=== PATIENT | female | born 1950 | race Caucasian/White ===

== ENCOUNTER 2017-04-25 10:26 | Emergency (ER) | payer OTHER ==
[~2017-04-25] VITALS: Ht 152.4 cm; Wt 54.6 kg
[2017-04-25 10:56] VITALS: BP 150/93
--- NOTE | 2017-04-25 12:10 | NUR ---
66/F BIB SELF c/o generalized pruritus x 1 wk; no obvious rash noted; denies eating or using and new products, hx OF hyperthyroid, RH. DENIES N/V/D; AAOX4 WITH EVEN AND STEADY GAIT; LUNGS CLEAR BL; HR EVEN AND REGULAR; PT DENIES ANY FEVER, CP, SOB, OR COUGH AT THIS TIME; PATIENT STATES PAIN OF 0/10 AT THIS TIME; VSS; PATIENT POSITIONED FOR COMFORT; HOB ELEVATED; BEDRAILS UP X2; BED DOWN. ER MD MADE AWARE OF PT STATUS.
--- NOTE | 2017-04-25 12:30 | NUR ---
ER MD DR MADSEN EVALUATING PT AT BEDSIDE
--- NOTE | 2017-04-25 12:40 | NUR ---
BP 177/117; RA., 177/87 LA DENIES ANY HEADACH OR DIZZINESS; PT STS "LAST WEEK MY BP NORMAL"NOTIFIED ER MD DR MADSEN. AWARE .
--- NOTE | 2017-04-25 12:47 | NUR ---
Patient discharged with BP 177/87; DENIES HEADACH OR MD DWAYNE AWARE. Written and verbal after care instructions given and explained. Patient alert, oriented and verbalized understanding of instructions. Ambulatory with steady gait. All questions addressed prior to discharge. ID band removed. Patient advised to follow up with PMD. Rx of BENADRYL & PREDNISONE given. Patient educated on indication of medication including possible reaction and side effects. Opportunity to ask questions provided and answered.
[2017-04-25 12:48] VITALS: BP 177/87
== END 2017-04-25 12:47 | disposition home or self-care (01) ==
LOC: MED 10:26
DX: R21 Rash and other nonspecific skin eruption (principal); E07.9 Disorder of thyroid, unspecified; Z88.6 Allergy status to analgesic agent
CPT/HCPCS: 99283

== ENCOUNTER 2019-02-26 10:11 | Emergency (ER) | payer OTHER ==
[~2019-02-26] VITALS: Ht 147.3 cm; Wt 48.1 kg
--- NOTE | 2019-02-26 10:16 | NUR ---
PATIENT AMBULATED TO BED 11
[2019-02-26 10:20] VITALS: BP 185/104
--- NOTE | 2019-02-26 10:23 | NUR ---
urine cup handed to pt for sample
--- NOTE | 2019-02-26 10:27 | NUR ---
c/o sudden onset of right flank pain non radiating x 3 days denies dysuria, denies n/v
--- NOTE | 2019-02-26 10:50 | NUR ---
encouraged to provide urine sample---lab at bedside
--- NOTE | 2019-02-26 10:50 | NUR ---
returned from radiology via
[2019-02-26 11:05] LABS: BASOPHILS % (AUTO) 0.7 % (0.0-2.0); EOSINOPHILS # (AUTO) 0.1 K/uL (0-0.4); EOSINOPHILS % (AUTO) 2.4 % (0.0-4.0); HEMATOCRIT 35.7 % (36-48); LYMPHOCYTES # (AUTO) 2.5 K/uL (2.5-16.5); LYMPHOCYTES % (AUTO) 49.5 % (20.5-51.1); MEAN CORPUSCULAR HEMOGLOBIN 33 pg (27-31); MEAN CORPUSCULAR HGB CONC 34 g/dL (33-37); MEAN CORPUSCULAR VOLUME 97.5 fL (80-94); MONOCYTES # (AUTO) 0.7 K/uL (0.8-1.0); MONOCYTES % (AUTO) 13.4 % (1.7-9.3); NEUTROPHILS # (AUTO) 1.7 K/uL (1.8-7.7); PLATELET COUNT (AUTO) 262 K/uL (140-450); RED BLOOD CELL COUNT(AUTO) 3.66 MIL/uL (4.20-5.40); RED CELL DISTRIBUTION WIDTH 13.6 % (11.6-13.7)
--- NOTE | 2019-02-26 11:13 | NUR ---
ultrasound at bedside
[2019-02-26 11:31] LABS: APPEARANCE,URINE CLEAR (CLEAR); BILIRUBIN,URINE NEGATIVE (NEGATIVE); BLOOD, URINE 1+ (NEGATIVE); COLOR,URINE YELLOW (YELLOW); LEUKOCYTE ESTERASE ,URINE NEGATIVE (NEGATIVE); NITRITE, URINE NEGATIVE (NEGATIVE); PH,URINE 6.5 (5.0-9.0); UGLUCOSE NEGATIVE (NEGATIVE)
[2019-02-26 11:38] LABS: ALBUMIN 3.7 g/dL (3.4-5.0); CARBON DIOXIDE 25.8 mmol/L (21-32); CREATININE 0.6 mg/dL (0.6-1.3); POTASSIUM 3.8 mmol/L (3.5-5.1); TOTAL BILIRUBIN 0.5 mg/dL (0.0-1.0)
[2019-02-26 12:03] LABS: RBC,URINE 0-5 /HPF (0-5); WBC,URINE NONE SEEN /HPF (0-5)
[2019-02-26 12:53] VITALS: BP 143/91
--- NOTE | 2019-02-26 12:53 | NUR ---
Patient discharged with v/s stable. Written and verbal after care instructions given and explained. Patient alert, oriented and verbalized understanding of instructions. Ambulatory with steady gait. All questions addressed prior to discharge. ID band removed. Patient advised to follow up with PMD. Rx of norco/ibuprofen given. Patient educated on indication of medication including possible reaction and side effects. Opportunity to ask questions provided and answered.
== END 2019-02-26 12:53 | disposition home or self-care (01) ==
LOC: MED 10:11
DX: M54.9 Dorsalgia, unspecified (principal); I10 Essential (primary) hypertension; E07.9 Disorder of thyroid, unspecified; E78.5 Hyperlipidemia, unspecified; M06.9 Rheumatoid arthritis, unspecified; Z90.49 Acquired absence of other specified parts of digestive tract; Z98.51 Tubal ligation status
CPT/HCPCS: 36415; 72100; 76770; 80053; 81001; 85025; 99284; Q0092

== ENCOUNTER 2019-06-06 23:27 | Emergency (ER) | payer OTHER ==
[~2019-06-06] VITALS: Ht 149.9 cm; Wt 47.6 kg
[2019-06-06 23:28] VITALS: BP 173/83
--- NOTE | 2019-06-06 23:45 | NUR ---
69 Y FEMALE, BIBA DUE HEART PALPITATIONS THAT STARTED ABOUT 1HOUR AGO. PT STATED "IT FELT LIKE MY HEART WAS POUNDING SO HARD" C/O PAIN 2/10 THAT DOES NOT RADIATE. PT ALSO STATED "WHEN I HAD THE PALPITATION IT FELT LIKE I RUNNING OUT OF BREATH". -N/V/D/BLURRY VISION, PT TOOK CHOLESTEROL MED TONIGHT, PT AAOX4, GCS 15, RR EVEN UNLABORED, NO SOB NOTED AT THIS TIME. ED MD DR. MADSEN MADE AWARE. WILL CONTINUE TO MONITOR CLOSELY, BEDLOCKED IN LOWEST POSITION, BILATERAL SIDERAILS UP. HX:HTN, HYPOTHYROIDISM
[2019-06-06 23:50] LABS: BASOPHILS % (AUTO) 0.4 % (0.0-2.0); EOSINOPHILS # (AUTO) 0.1 K/uL (0-0.4); EOSINOPHILS % (AUTO) 1.2 % (0.0-4.0); HEMATOCRIT 31.1 % (36-48); HEMOGLOBIN 10.6 g/dL (12.0-16.0); LYMPHOCYTES # (AUTO) 3.9 K/uL (2.5-16.5); MEAN CORPUSCULAR HEMOGLOBIN 33 pg (27-31); MEAN CORPUSCULAR HGB CONC 34 g/dL (33-37); MEAN CORPUSCULAR VOLUME 97.7 fL (80-94); MONOCYTES # (AUTO) 1.1 K/uL (0.8-1.0); MONOCYTES % (AUTO) 15.4 % (1.7-9.3); NEUTROPHILS % (AUTO) 28.3 % (42.2-75.2); PLATELET COUNT (AUTO) 244 K/uL (140-450); RED BLOOD CELL COUNT(AUTO) 3.18 MIL/uL (4.20-5.40)
[2019-06-07 00:05] LABS: LYMPHOCYTES % (AUTO) 54.7 % (20.5-51.1)
[2019-06-07 00:20] LABS: FREE T4 (FREE THYROXINE) 1.03 ng/dL (0.76-1.46); THYROID STIMULATING HORMONE 2.7 uIU/mL (0.34-3.74)
[2019-06-07 00:25] LABS: ALBUMIN 3.2 g/dL (3.4-5.0); ANION GAP 9.1 (8-16); CARBON DIOXIDE 29.5 mmol/L (21-32); CREATININE 0.6 mg/dL (0.6-1.3); POTASSIUM 3.6 mmol/L (3.5-5.1); TOTAL BILIRUBIN 0.5 mg/dL (0.0-1.0)
--- NOTE | 2019-06-07 01:08 | NUR ---
PT IN BED RESTING, VSS AT THIS TIME.
--- NOTE | 2019-06-07 01:30 | NUR ---
RECEIVED REPORT FROM KEN GA. TRANSFER OF CARE AT THIS TIME.
--- NOTE | 2019-06-07 02:22 | NUR ---
PT RESTING COMFORTABLY IN BED WITH VSS. DENIES PAIN, DISCOMFORT AT THIS TIME. SKIN PINK, WARM, DRY. BREATHING EVEN, UNLABORED.
[2019-06-07 02:40] VITALS: BP 139/73
--- NOTE | 2019-06-07 02:40 | NUR ---
Patient discharged with v/s stable. Written and verbal after care instructions given and explained. Patient verbalized understanding. Ambulatory with steady gait. All questions addressed prior to discharge. Advised to follow up with PMD.
== END 2019-06-07 02:40 | disposition home or self-care (01) ==
LOC: MED 23:27
DX: R00.2 Palpitations (principal); Z88.6 Allergy status to analgesic agent
CPT/HCPCS: 36415; 71045; 80053; 81002; 84439; 84443; 84484; 85025; 93005; 99284

== ENCOUNTER 2020-08-09 14:19 | Emergency (ER) | payer OTHER ==
[~2020-08-09] VITALS: Ht 149.9 cm; Wt 54.0 kg
[2020-08-09 14:23] VITALS: BP 146/74
--- NOTE | 2020-08-09 14:31 | NUR ---
AMBULATED TO BED 7
--- NOTE | 2020-08-09 14:43 | NUR ---
70 Y/O FEMALE ARRIVED TO ED C/C KEVON 05/25 NON RADIATING EPIGASTRIC PAIN X 4DAYS WITH NAUSEA. PT STATES NO VOMITING, NO DIARRHEA. PT STATES SHE HAS TAKEN PEPTO BISMOL, TUMS, SPEARMINT TEA, BUT NO RELIEF. BOWEL SOUNDS ACTIVE IN ALL FOR QUADRANTS, PASSING FLATUS, SKIN DRY AND INTACT, MOUIST MUCCOUS MEMBRANES. AA0X4 ALERGIES: CODEINE, NAPROXEN
[2020-08-09] MEDS ORDERED: ALUMINUM HYD/MAG/SIMETHICONE 30 ML UDC PO STA (15:18)
[2020-08-09] MEDS ORDERED: DICYCLOMINE 10 MG CAP PO STA (15:18)
[2020-08-09] MEDS ORDERED: FAMOTIDINE 20 MG TAB PO STA (15:18)
[2020-08-09 15:47] LABS: BASOPHILS % (AUTO) 0.6 % (0.0-2.0); EOSINOPHILS # (AUTO) 0.1 K/uL (0-0.4); EOSINOPHILS % (AUTO) 1.2 % (0.0-4.0); HEMATOCRIT 30.2 % (36-48); HEMOGLOBIN 10.3 g/dL (12.0-16.0); LYMPHOCYTES # (AUTO) 2.6 K/uL (2.5-16.5); LYMPHOCYTES % (AUTO) 53.5 % (20.5-51.1); MEAN CORPUSCULAR HEMOGLOBIN 34 pg (27-31); MEAN CORPUSCULAR HGB CONC 34 g/dL (33-37); MEAN CORPUSCULAR VOLUME 98.4 fL (80-94); MONOCYTES # (AUTO) 0.8 K/uL (0.8-1.0); MONOCYTES % (AUTO) 15.8 % (1.7-9.3); NEUTROPHILS # (AUTO) 1.4 K/uL (1.8-7.7); NEUTROPHILS % (AUTO) 28.9 % (42.2-75.2); PLATELET COUNT (AUTO) 230 K/uL (140-450); RED BLOOD CELL COUNT(AUTO) 3.07 MIL/uL (4.20-5.40); RED CELL DISTRIBUTION WIDTH 13.8 % (11.6-13.7); WHITE BLOOD COUNT (AUTO) 4.8 K/uL (4.8-10.8)
[2020-08-09 15:48] LABS: APPEARANCE,URINE CLEAR (CLEAR); BILIRUBIN,URINE NEGATIVE (NEGATIVE); BLOOD, URINE 1+ (NEGATIVE); COLOR,URINE YELLOW (YELLOW); LEUKOCYTE ESTERASE ,URINE NEGATIVE (NEGATIVE); NITRITE, URINE NEGATIVE (NEGATIVE); UGLUCOSE NEGATIVE (NEGATIVE)
[2020-08-09 16:06] LABS: WBC,URINE 0-5 /HPF (0-5)
[2020-08-09 16:08] LABS: ALBUMIN 3.2 g/dL (3.4-5.0); AMYLASE 79 U/L (25-115); ANION GAP 14.7 (8-16); ASPARTATE AMINOTRANSFERASE 37 U/L (15-37); CARBON DIOXIDE 24.7 mmol/L (21-32); CHLORIDE 104 mmol/L (98-107); CREATININE 0.6 mg/dL (0.6-1.3); GLUCOSE 96 mg/dL (74-106); LIPASE 130 U/L (73-393); POTASSIUM 4.4 mmol/L (3.5-5.1); SODIUM SERUM 139 mmol/L (136-145); TOTAL BILIRUBIN 0.5 mg/dL (0.0-1.0); UREA NITROGEN, BLOOD 12 mg/dL (7-18)
[2020-08-09 16:44] VITALS: BP 146/74
--- NOTE | 2020-08-09 16:44 | NUR ---
Patient discharged with v/s stable. Written and verbal after care instructions given and explained. Patient alert, oriented and verbalized understanding of instructions. Ambulatory with steady gait. All questions addressed prior to discharge. ID band removed. Patient advised to follow up with PMD. Rx of famotidine and maalox given. Patient educated on indication of medication including possible reaction and side effects. Opportunity to ask questions provided and answered.
[2020-08-10] MEDS ORDERED: FAMO-90 PO (21:05)
[2020-08-10] MEDS ORDERED: LOSA50TA1 PO (21:05)
[2020-08-10] MEDS ORDERED: LEVO0.0712 PO (21:05)
[2020-08-10] MEDS ORDERED: METH2.5T6 PO (21:05)
[2020-08-10] MEDS ORDERED: MAG-27 PO (21:05)
[2020-08-10] MEDS ORDERED: HYDR50CA9 PO (21:05)
[2020-08-10] MEDS ORDERED: FERR90TA PO (21:05)
[2020-08-10] MEDS ORDERED: PRAV20TA6 PO (21:05)
[2020-08-10] MEDS ORDERED: FOLI1TAB90 PO (21:05)
== END 2020-08-09 16:44 | disposition home or self-care (01) ==
LOC: MED 14:19
DX: A08.4 Viral intestinal infection, unspecified (principal); R11.2 Nausea with vomiting, unspecified; I10 Essential (primary) hypertension; K21.9 Gastro-esophageal reflux disease without esophagitis; E07.9 Disorder of thyroid, unspecified; Z88.5 Allergy status to narcotic agent; Z88.8 Allergy status to other drugs, medicaments and biological substances
CPT/HCPCS: 36415; 80053; 81001; 82150; 83690; 85025; 87086; 99284

== ENCOUNTER 2020-08-10 18:18 | Inpatient (IN) | payer OTHER ==
[~2020-08-10] VITALS: Ht 149.9 cm; Wt 44.9 kg
[2020-08-10 18:31] VITALS: BP 113/65
[2020-08-10] MEDS ORDERED: NACL 0.9% 1,000 ML IV ONE (18:55)
[2020-08-10] MEDS ORDERED: ONDANSETRON 4 MG/2 ML VIAL IVP ONE (18:55)
[2020-08-10 19:16] LABS: BASOPHILS % (AUTO) 0.6 % (0.0-2.0); HEMATOCRIT 31.6 % (36-48); LYMPHOCYTES # (AUTO) 2.4 K/uL (2.5-16.5); LYMPHOCYTES % (AUTO) 46.9 % (20.5-51.1); MEAN CORPUSCULAR HEMOGLOBIN 34 pg (27-31); MEAN CORPUSCULAR HGB CONC 35 g/dL (33-37); MONOCYTES # (AUTO) 0.7 K/uL (0.8-1.0); MONOCYTES % (AUTO) 13.2 % (1.7-9.3); NEUTROPHILS % (AUTO) 38.3 % (42.2-75.2); PLATELET COUNT (AUTO) 250 K/uL (140-450); RED BLOOD CELL COUNT(AUTO) 3.23 MIL/uL (4.20-5.40); RED CELL DISTRIBUTION WIDTH 13.5 % (11.6-13.7); WHITE BLOOD COUNT (AUTO) 5.1 K/uL (4.8-10.8)
[2020-08-10 19:28] LABS: ALBUMIN 3.5 g/dL (3.4-5.0); ANION GAP 11.5 (8-16); ASPARTATE AMINOTRANSFERASE 37 U/L (15-37); CARBON DIOXIDE 27.3 mmol/L (21-32); CHLORIDE 104 mmol/L (98-107); CREATININE 0.7 mg/dL (0.6-1.3); GLUCOSE 89 mg/dL (74-106); LIPASE 143 U/L (73-393); POTASSIUM 3.8 mmol/L (3.5-5.1); SODIUM SERUM 139 mmol/L (136-145); TOTAL BILIRUBIN 0.6 mg/dL (0.0-1.0); UREA NITROGEN, BLOOD 10 mg/dL (7-18)
[2020-08-10] MEDS ORDERED: fentaNYL citrate 0.05 MG/ML VIAL IVP ONE (19:30)
[2020-08-10] MEDS ORDERED: metroNIDAZOLE 500 MG/NS PREMIX 100 ML IV ONE (20:30)
[2020-08-10] MEDS ORDERED: cefTRIAXone 1,000 MG VIAL ONE (20:42)
[2020-08-10] MEDS ORDERED: MAG-27 PO (21:05)
[2020-08-10] MEDS ORDERED: HYDR50CA9 PO (21:05)
[2020-08-10] MEDS ORDERED: LOSA50TA1 PO (21:05)
[2020-08-10] MEDS ORDERED: FOLI1TAB90 PO (21:05)
[2020-08-10] MEDS ORDERED: DEXT 5% /NACL 0.9% 1,000 ML IV SCH (21:05)
[2020-08-10] MEDS ORDERED: LEVOFLOXACIN 500 MG/D5W PREMIX 100 ML IV SCH (21:05)
[2020-08-10] MEDS ORDERED: LEVO0.0712 PO (21:05)
[2020-08-10] MEDS ORDERED: MAGNESIUM OXIDE 400 MG TAB PO PRN (21:05)
[2020-08-10] MEDS ORDERED: METH2.5T6 PO (21:05)
[2020-08-10] MEDS ORDERED: MORPHINE SULFATE 4 MG/ML SYR IVP PRN (21:05)
[2020-08-10] MEDS ORDERED: ACETAMINOPHEN 325 MG TAB PO PRN (21:05)
[2020-08-10] MEDS ORDERED: HYDROcodone/APAP 5/325 MG 1 TAB TAB PO PRN (21:05)
[2020-08-10] MEDS ORDERED: ONDANSETRON 4 MG/2 ML VIAL IVP PRN (21:05)
[2020-08-10] MEDS ORDERED: POTASSIUM CHLORIDE 10 MEQ TABER PO PRN (21:05)
[2020-08-10] MEDS ORDERED: HYDROmorphone 1 MG/ML AMP IVP PRN (21:05)
[2020-08-10] MEDS ORDERED: FERR90TA PO (21:05)
[2020-08-10] MEDS ORDERED: MAG SULF 2000 MG/WATER PREMIX 50 ML IV PRN (21:05)
[2020-08-10] MEDS ORDERED: FAMO-90 PO (21:05)
[2020-08-10] MEDS ORDERED: KCL 20 MEQ/WATER INJ PREMIX 200 ML IV PRN (21:05)
[2020-08-10] MEDS ORDERED: PRAV20TA6 PO (21:05)
[2020-08-11] MEDS: POTASSIUM CHL 40 MEQ/ D5-1/2NS 1,000 ML IV SCH ×3 (00:26→16:40)
[2020-08-11] MEDS: metroNIDAZOLE 500 MG/NS PREMIX 100 ML IV SCH ×3 (04:34→20:36)
[2020-08-11 06:06] LABS: BASOPHILS % (AUTO) 0.9 % (0.0-2.0); EOSINOPHILS # (AUTO) 0.1 K/uL (0-0.4); EOSINOPHILS % (AUTO) 1.5 % (0.0-4.0); HEMATOCRIT 30.2 % (36-48); HEMOGLOBIN 10.3 g/dL (12.0-16.0); LYMPHOCYTES # (AUTO) 2.6 K/uL (2.5-16.5); LYMPHOCYTES % (AUTO) 54.3 % (20.5-51.1); MEAN CORPUSCULAR HEMOGLOBIN 34 pg (27-31); MEAN CORPUSCULAR HGB CONC 34 g/dL (33-37); MEAN CORPUSCULAR VOLUME 98.2 fL (80-94); MONOCYTES # (AUTO) 0.7 K/uL (0.8-1.0); MONOCYTES % (AUTO) 14.1 % (1.7-9.3); NEUTROPHILS # (AUTO) 1.4 K/uL (1.8-7.7); NEUTROPHILS % (AUTO) 29.2 % (42.2-75.2); PLATELET COUNT (AUTO) 235 K/uL (140-450); RED BLOOD CELL COUNT(AUTO) 3.07 MIL/uL (4.20-5.40); RED CELL DISTRIBUTION WIDTH 13.7 % (11.6-13.7); WHITE BLOOD COUNT (AUTO) 4.8 K/uL (4.8-10.8)
[2020-08-11 06:30] LABS: MAGNESIUM 2.5 mg/dL (1.8-2.4); PHOSPHORUS 3.1 mg/dL (2.5-4.9)
[2020-08-11 08:00] VITALS: BP 122/72
[2020-08-11] MEDS ORDERED: HYDROCORTISONE 1% OINT 30 GM TUBE TP PRN (10:55)
[2020-08-11 16:00] VITALS: BP 139/73
[2020-08-11] MEDS ORDERED: hydrOXYzine PAMOATE 25 MG CAP PO PRN (19:50)
[2020-08-11] MEDS ORDERED: LEVOFLOXACIN 250 MG/D5 PREMIX 50 ML IV SCH (21:00)
[2020-08-12] VITALS: BP 118/68
[2020-08-12] MEDS: metroNIDAZOLE 500 MG/NS PREMIX 100 ML IV SCH ×2 (05:17→12:27)
[2020-08-12 06:15] LABS: EOSINOPHILS # (AUTO) 0.1 K/uL (0-0.4); EOSINOPHILS % (AUTO) 2.2 % (0.0-4.0); HEMATOCRIT 28.6 % (36-48); HEMOGLOBIN 9.9 g/dL (12.0-16.0); LYMPHOCYTES # (AUTO) 2.2 K/uL (2.5-16.5); MEAN CORPUSCULAR HEMOGLOBIN 34 pg (27-31); MEAN CORPUSCULAR HGB CONC 35 g/dL (33-37); MEAN CORPUSCULAR VOLUME 98.2 fL (80-94); MONOCYTES # (AUTO) 0.7 K/uL (0.8-1.0); MONOCYTES % (AUTO) 15.7 % (1.7-9.3); NEUTROPHILS # (AUTO) 1.2 K/uL (1.8-7.7); NEUTROPHILS % (AUTO) 28.1 % (42.2-75.2); PLATELET COUNT (AUTO) 207 K/uL (140-450); RED BLOOD CELL COUNT(AUTO) 2.91 MIL/uL (4.20-5.40); RED CELL DISTRIBUTION WIDTH 13.5 % (11.6-13.7); WHITE BLOOD COUNT (AUTO) 4.2 K/uL (4.8-10.8)
[2020-08-12] MEDS ORDERED: LEVOTHYROXINE 0.075 MG TAB PO SCH (06:30)
[2020-08-12 06:35] LABS: MAGNESIUM 2.2 mg/dL (1.8-2.4); PHOSPHORUS 3.2 mg/dL (2.5-4.9)
[2020-08-12 08:00] VITALS: BP 120/68
[2020-08-12] MEDS ORDERED: FERROUS GLUCONATE PO SCH (09:00)
[2020-08-12] MEDS ORDERED: ATORVASTATIN 20 MG TAB PO SCH (09:00)
[2020-08-12] MEDS ORDERED: FAMOTIDINE 20 MG TAB PO SCH (09:00)
[2020-08-12] MEDS ORDERED: LOSARTAN 50 MG TAB PO SCH (09:00)
[2020-08-12] MEDS ORDERED: FOLIC ACID 1 MG TAB PO SCH (09:00)
[2020-08-12] MEDS ORDERED: METHOTREXATE 2.5 MG TAB PO SCH (09:00)
[2020-08-12] MEDS ORDERED: IRON 27 MG PO SCH (09:00)
[2020-08-12] MEDS: POTASSIUM CHL 40 MEQ/ D5-1/2NS 1,000 ML IV SCH (10:35)
[2020-08-12] MEDS ORDERED: CIPR500T4 PO (12:42)
[2020-08-12] MEDS ORDERED: METR250T2 PO (12:43)
== END 2020-08-12 14:30 | disposition home or self-care (01) | DRG 393 ==
LOC: MED 18:18 → MTU 21:01
PROVIDERS: ADMIT Hospitalist; ATTEND Hospitalist
DX: K63.1 Perforation of intestine (nontraumatic) (principal); K65.9 Peritonitis, unspecified; I10 Essential (primary) hypertension; E78.5 Hyperlipidemia, unspecified; M06.9 Rheumatoid arthritis, unspecified; D64.9 Anemia, unspecified; E03.9 Hypothyroidism, unspecified; F41.9 Anxiety disorder, unspecified; Z88.5 Allergy status to narcotic agent; Z90.49 Acquired absence of other specified parts of digestive tract; Z90.711 Acquired absence of uterus with remaining cervical stump; Z79.899 Other long term (current) drug therapy; Z88.8 Allergy status to other drugs, medicaments and biological substances
CPT/HCPCS: 36415; 80053; 83036; 83690; 83735; 84100; 85025; 87040; 87081; 96361; 96365; 99285; J0696; J1956; J2405; J3010; J3490; J7030; J8610

== ENCOUNTER 2021-06-05 12:34 | Inpatient (IN) | payer OTHER ==
[~2021-06-05] VITALS: Ht 149.9 cm; Wt 45.8 kg
[~2021-06-05 12:34] MED LIST: CIPR500T4 PO; FAMO-90 PO; FERR90TA PO; FOLI1TAB90 PO; HYDR50CA9 PO; LEVO0.0712 PO; LOSA50TA1 PO; MAG-27 PO; METH2.5T6 PO; METR-520 PO; PRAV20TA6 PO
[2021-06-05 12:39] VITALS: BP 129/79
--- NOTE | 2021-06-05 12:52 | NUR ---
PT AMB TO BED 9.
--- NOTE | 2021-06-05 13:01 | NUR ---
GUT SNATCHER AT PT BEDSIDE.
--- NOTE | 2021-06-05 13:02 | NUR ---
71 Y/O FEMALE C/O EPIGASTRIC PAIN 03/25 DESCRIBES ACHING X 4 DAYS. PT STATES SHE HAD DARK TARRY STOOLS X1DAY. STATES +N/-V, DENIES FEVER/CHILLS. ABD SOFT, ROUND, NON-TENDER, BOWEL SOUNDS ACTIVE X4, LAST BM 06/04/19. PMH: ANEMIA, HTN, HYPOTHYROID, HLD, CELIAC DISEASE ALLERGIES: CODEINE, NAPROXEN
[2021-06-05] MEDS ORDERED: PANTOPRAZOLE 40 MG INJ VIAL IVP ONE (13:05)
[2021-06-05] MEDS ORDERED: ONDANSETRON 4 MG/2 ML VIAL IVP ONE (13:05)
[2021-06-05 13:12] LABS: BASOPHILS % (AUTO) 0.6 % (0.0-2.0); EOSINOPHILS % (AUTO) 0.8 % (0.0-4.0); HEMATOCRIT 31.5 % (36-48); HEMOGLOBIN 10.8 g/dL (12.0-16.0); LYMPHOCYTES % (AUTO) 51.4 % (20.5-51.1); MEAN CORPUSCULAR HEMOGLOBIN 35 pg (27-31); MEAN CORPUSCULAR HGB CONC 34 g/dL (33-37); MEAN CORPUSCULAR VOLUME 102.7 fL (80-94); MONOCYTES # (AUTO) 0.6 K/uL (0.8-1.0); NEUTROPHILS # (AUTO) 1.3 K/uL (1.8-7.7); NEUTROPHILS % (AUTO) 33.2 % (42.2-75.2); PLATELET COUNT (AUTO) 195 K/uL (140-450); RED BLOOD CELL COUNT(AUTO) 3.06 MIL/uL (4.20-5.40); RED CELL DISTRIBUTION WIDTH 15.4 % (11.6-13.7)
[2021-06-05 13:36] LABS: ANION GAP 12.8 (8-16); ASPARTATE AMINOTRANSFERASE 27 U/L (15-37); CARBON DIOXIDE 27.4 mmol/L (21-32); CHLORIDE 102 mmol/L (98-107); CREATININE 0.7 mg/dL (0.6-1.3); GLUCOSE 94 mg/dL (74-106); POTASSIUM 4.2 mmol/L (3.5-5.1); SODIUM SERUM 138 mmol/L (136-145); TOTAL BILIRUBIN 0.8 mg/dL (0.0-1.0); UREA NITROGEN, BLOOD 12 mg/dL (7-18)
[2021-06-05 13:46] LABS: APPEARANCE,URINE CLEAR (CLEAR); BILIRUBIN,URINE NEGATIVE (NEGATIVE); BLOOD, URINE 1+ (NEGATIVE); COLOR,URINE YELLOW (YELLOW); LEUKOCYTE ESTERASE ,URINE NEGATIVE (NEGATIVE); NITRITE, URINE NEGATIVE (NEGATIVE); UGLUCOSE NEGATIVE (NEGATIVE)
[2021-06-05 13:57] LABS: RBC,URINE 0-5 /HPF (0-5); WBC,URINE 0-5 /HPF (0-5)
--- NOTE | 2021-06-05 14:04 | NUR ---
Patient appears to be resting comfortably in bed. Vital Signs within normal limits. Respirations even and unlabored.
[2021-06-05] MEDS ORDERED: METOCLOPRAMIDE 10 MG/2 ML INJ VIAL IVP ONE (14:35)
[2021-06-05] MEDS ORDERED: ALUMINUM HYD/MAG/SIMETHICONE 30 ML UDC PO ONE (14:35)
--- NOTE | 2021-06-05 14:49 | NUR ---
PT AMBUATED TO RESTROOM WITH A STEADY GAIT.
--- NOTE | 2021-06-05 14:53 | NUR ---
PT AMBULATED TO ER BEDD 9 WITH A STEADY GAIT.
[2021-06-05] MEDS ORDERED: ONDANSETRON 4 MG/2 ML VIAL IVP PRN (15:35)
[2021-06-05] MEDS ORDERED: TOFA5TAB PO (15:46)
[2021-06-05] MEDS: ACETAMINOPHEN 325 MG TAB PO PRN ×2 (15:57→22:43)
[2021-06-05] MEDS: DEXT 5% /NACL 0.9% 1,000 ML IV SCH (15:58)
--- NOTE | 2021-06-05 16:37 | NUR ---
PT RESTING, HOB LOWERED FOR COMFORT, VSS, WILL CONTINUE TO MONITOR.
--- NOTE | 2021-06-05 17:50 | NUR ---
RECEIVED REPORT FROM ER NURSE FOR CONTINUITY OF CARE. WILL WAIT FOR PT TO ARRIVE TO UNIT.
--- NOTE | 2021-06-05 17:56 | NUR ---
GAVE REPORT TO KEN PAEZ. TRANSFER OF CARE AT THIS TIME.
--- NOTE | 2021-06-05 18:01 | NUR ---
Patient will be admitted to care of DR. BADILLO. Admited to MED SURG. Will go to room 125A. Belongings list completed. Report to KEN PAEZ.
--- NOTE | 2021-06-05 18:02 | NUR ---
PT ARRIVED TO UNIT VIA GURNEY. PT AMBULATED TO BED INDEPENDENTLY. PT IS AWAKE AND ALERT. A&OX4. ON RA WITH BREATHING UNLABORED. SKIN IS WARM, DRY, AND INTACT. IV IS IN THE RIGHT FOREARM 20 GAUGE INFUSING FLUIDS ORDERED. PT IS STABLE AT THIS TIME. VS ARE STABLE. MRSA WAS SWABBED IN THE NARES, SENT TO LAB. WILL CONTINUE TO MONITOR.
[2021-06-05 18:25] VITALS: BP 141/72
--- NOTE | 2021-06-05 19:25 | NUR ---
ENDORSED PT TO SENIOR ACCOUNT DIRECTOR NURSE FOR CONTINUITY OF CARE. PT IS STABLE AT THIS TIME. PLAN OF CARE DISCUSSED.
--- NOTE | 2021-06-05 19:26 | NUR ---
RECEIVED REPORT FROM AM NURSE. PATIENT IS AWAKE IN BED WELL RESTED. NO SOB NOTED. ALL SAFETY MEASURES IN PLACE. NO COMPLAINTS OF PAIN. CALL LIGHT WITHIN REACH. WILL CONTINUE TO MONITOR.
[2021-06-05] MEDS: PANTOPRAZOLE 40 MG INJ VIAL IVP SCH (22:19)
--- NOTE | 2021-06-05 22:19 | NUR ---
MEDS GIVEN ORDERED.
[2021-06-06] VITALS: BP 134/78
--- NOTE | 2021-06-06 02:00 | NUR ---
PATIENT IS SLEEPING. NO SOB NOTED. CALL LIGHT WITHIN REACH.
[2021-06-06] MEDS: DEXT 5% /NACL 0.9% 1,000 ML IV SCH ×2 (04:55→18:15)
[2021-06-06] MEDS: LEVOTHYROXINE 0.075 MG TAB PO SCH (06:30)
--- NOTE | 2021-06-06 07:20 | NUR ---
ENDORSED TO AM SHIFT NURSE FOR CONTINUITY OF CARE. PATIENT IS STABLE.
[2021-06-06 08:00] VITALS: BP 127/69
--- NOTE | 2021-06-06 08:00 | NUR ---
RECEIVED REPORT FROM NIGHTSNHFT AT BEDSIDE FOR CONTINUITY OF CARE. INITIAL ASSESSMENT INITIATED. WITH IVF ON GOING AND INFUSING WELL. NPO OBSERVED FOR POSSIBLE EGD. NO C/O PAIN AT THIS TIME, PER PATIENT SHE HAS NO BM SINCE THE AND DIDN'T NOTICE ANY BLOOD ON HER STOOL. WILL CONTINUE TO MONITOR.
[2021-06-06] MEDS ORDERED: LOSARTAN 50 MG TAB PO SCH (09:00)
[2021-06-06] MEDS: PANTOPRAZOLE 40 MG INJ VIAL IVP SCH ×2 (09:08→20:58)
--- NOTE | 2021-06-06 09:30 | NUR ---
SEEN BY DR. BADILLO, DAUGHTER CALLED AND SPOKE TO DR. BADILLO OVER THE PHONE. FOLLOW UP DR. PLUNKETT CONSULT.
[2021-06-06 10:00] LABS: BASOPHILS % (AUTO) 0.7 % (0.0-2.0); EOSINOPHILS # (AUTO) 0.1 K/uL (0-0.4); EOSINOPHILS % (AUTO) 1.7 % (0.0-4.0); HEMATOCRIT 31.1 % (36-48); HEMOGLOBIN 10.7 g/dL (12.0-16.0); LYMPHOCYTES # (AUTO) 1.4 K/uL (2.5-16.5); LYMPHOCYTES % (AUTO) 44.5 % (20.5-51.1); MEAN CORPUSCULAR HEMOGLOBIN 36 pg (27-31); MEAN CORPUSCULAR HGB CONC 34 g/dL (33-37); MEAN CORPUSCULAR VOLUME 103.9 fL (80-94); MONOCYTES # (AUTO) 0.5 K/uL (0.8-1.0); MONOCYTES % (AUTO) 16.7 % (1.7-9.3); NEUTROPHILS # (AUTO) 1.2 K/uL (1.8-7.7); NEUTROPHILS % (AUTO) 36.4 % (42.2-75.2); PLATELET COUNT (AUTO) 196 K/uL (140-450); RED BLOOD CELL COUNT(AUTO) 2.99 MIL/uL (4.20-5.40); RED CELL DISTRIBUTION WIDTH 14.8 % (11.6-13.7); WHITE BLOOD COUNT (AUTO) 3.2 K/uL (4.8-10.8)
--- NOTE | 2021-06-06 10:00 | NUR ---
SPOKE TO DR. SHERWOOD AND GIVE INFORMATION REGARDING PATIENT. FOR EGD TODAY, CONSENT PREPARED. WAITING FOR THE DR PLUNKETT TO EXPLAIN TO THE PATIENT.
[2021-06-06 10:15] LABS: ALBUMIN 3.6 g/dL (3.4-5.0); ANION GAP 9.6 (8-16); ASPARTATE AMINOTRANSFERASE 24 U/L (15-37); CARBON DIOXIDE 27.9 mmol/L (21-32); CHLORIDE 109 mmol/L (98-107); CREATININE 0.6 mg/dL (0.6-1.3); GLUCOSE 99 mg/dL (74-106); MAGNESIUM 2.3 mg/dL (1.8-2.4); POTASSIUM 3.5 mmol/L (3.5-5.1); SODIUM SERUM 143 mmol/L (136-145); TOTAL BILIRUBIN 1.1 mg/dL (0.0-1.0); UREA NITROGEN, BLOOD 7 mg/dL (7-18)
--- NOTE | 2021-06-06 11:30 | NUR ---
PATIENT OFF FLOOR WENT TO EGD, ALERT AWAKE ORIENTED X4.
[2021-06-06] MEDS ORDERED: fentaNYL citrate 0.05 MG/ML VIAL ONE (11:35)
[2021-06-06] MEDS ORDERED: MIDAZOLAM 5 MG/5 ML VIAL ONE (11:35)
[2021-06-06] MEDS ORDERED: diphenhydrAMINE 50 MG/ML VIAL ONE (11:35)
[2021-06-06] MEDS ORDERED: MIDAZOLAM 2 MG/2 ML VIAL IVP ONE (11:55)
[2021-06-06] MEDS ORDERED: fentaNYL citrate 0.05 MG/ML VIAL IVP ONE (11:55)
--- NOTE | 2021-06-06 14:10 | NUR ---
RECEIVED REPORT FROM KEN CORRAL FOR CONTINUITY OF CARE. PT IS STABLE.
[2021-06-06 16:00] VITALS: BP 129/73
--- NOTE | 2021-06-06 16:57 | NUR ---
CHECKED ON PATIENT. PATIENT IS WATCHING TV, DENIES PAIN AT THE MOMENT. WILL CONTINUE TO MONITOR.
--- NOTE | 2021-06-06 19:30 | NUR ---
ENDORSED TO LAW RESEARCHER NURSE FOR CONTINUITY OF CARE. PT IS STABLE.
--- NOTE | 2021-06-06 20:00 | NUR ---
PATIENT RECEIVED IN BED ALERT AND ORIENTED X 3-4 ABLE TO SPEAK NEEDS, NO S/S OF DISTRESS.
--- NOTE | 2021-06-06 21:00 | NUR ---
ALL DUE MEDS GIVEN TOLERATED WELL
[2021-06-06] MEDS ORDERED: hydrALAZINE 25 MG TAB PO PRN (23:00)
--- NOTE | 2021-06-06 23:00 | NUR ---
PIV TO LEFT FA GAUGE 20 WAS OBTAINED PER DAUGHTERS REQUEST, OLD INFILTRATED PIV WAS REMOVED, PRESSURE DRESSING WAS APPLIED
[2021-06-06] MEDS ORDERED: hydrALAZINE 25 MG TAB ONE (23:10)
--- NOTE | 2021-06-07 | NUR ---
PATIENT WAS CALMLY ASLEEP
--- NOTE | 2021-06-07 02:00 | NUR ---
PATIENT WAS CALMLY ASLEEP
[2021-06-07] MEDS: LEVOTHYROXINE 0.075 MG TAB PO SCH (06:46)
[2021-06-07 08:00] VITALS: BP 124/83
--- NOTE | 2021-06-07 08:00 | NUR ---
ALL REPORTS WERE GIVEN, TRANSFER OF CARE ENDORSED.
--- NOTE | 2021-06-07 08:01 | NUR ---
RECEIVED REPORT FROM ELECTRIC DEICER ASSEMBLER RN FOR CONTINUITY OF CARE. PATIENT IS IN BED RESTING. ALL SAFETY PRECAUTIONS IN PLACE.
--- NOTE | 2021-06-07 08:28 | NUR ---
PATIENT HAS BEEN SCREENED AND CATEGORIZED HIGH NUTRITION RISK. PATIENT WILL BE SEEN WITHIN 1-2 DAYS OF ADMISSION. 06/07/[address]
[2021-06-07] MEDS ORDERED: LOSARTAN 50 MG TAB PO SCH ×4 (09:00→10:35)
[2021-06-07] MEDS: PANTOPRAZOLE 40 MG INJ VIAL IVP SCH (10:34)
--- NOTE | 2021-06-07 10:35 | NUR ---
ADMINISTERED ALL SCHEDULED MEDICATIONS. PATIENT VERBALIZED UNDERSTANDING. ALL SAFETY PRECAUTIONS IN PLACE. WILL CONTINUE TO MONITOR.
--- NOTE | 2021-06-07 11:15 | NUR ---
SPOKE WITH PATIENT'S DAUGHTER, AMANDA ABOUT POC. PATIENT'S DAUGHTER AND PATIENT VERBALIZED UNDERSTANDING.
--- NOTE | 2021-06-07 14:30 | NUR ---
PROVIDED DISCHARGE INSTRUCTIONS TO PATIENT. PATIENT VERBALIZED UNDERSTANDING. ALL SAFETY PRECAUTIONS IN PLACE.
[2021-06-07 15:05] VITALS: BP 124/83
--- NOTE | 2021-06-07 15:50 | NUR ---
PATIENT'S DAUGHTER PICKED UP PATIENT FOR DISCHARGE. REMOVED IV. IV CATHETER IS INTACT. PATIENT IS STABLE.
== END 2021-06-07 15:50 | disposition home or self-care (01) | DRG 368 ==
LOC: MED 12:34 → MMU 15:37 → OBSVTOIN 06-06 10:17
PROVIDERS: ADMIT Internal Medicine; ATTEND Internal Medicine
PROC: 0DB68ZX Excision of Stomach, Via Natural or Artificial Opening Endoscopic, Diagnostic (ICD-10-PCS; 2021-06-06)
PROC: 0DB98ZX Excision of Duodenum, Via Natural or Artificial Opening Endoscopic, Diagnostic (ICD-10-PCS; principal; 2021-06-06 10:30)
DX: K20.91 Esophagitis, unspecified with bleeding (principal); K29.71 Gastritis, unspecified, with bleeding; K27.4 Chronic or unspecified peptic ulcer, site unspecified, with hemorrhage; D64.9 Anemia, unspecified; M06.9 Rheumatoid arthritis, unspecified; E03.9 Hypothyroidism, unspecified; E78.5 Hyperlipidemia, unspecified; E78.00 Pure hypercholesterolemia, unspecified; F41.9 Anxiety disorder, unspecified; I10 Essential (primary) hypertension; K90.0 Celiac disease; Z90.710 Acquired absence of both cervix and uterus; Z88.5 Allergy status to narcotic agent; Z88.8 Allergy status to other drugs, medicaments and biological substances; Z79.899 Other long term (current) drug therapy; Z90.49 Acquired absence of other specified parts of digestive tract
CPT/HCPCS: 43239; 96374; 96375; 99285; G0378; 36415; 76705; 80053; 81001; 83690; 83735; 85025; 86886; 86900; 86901; 87081; C9113; J1200; J2250; J2405; J2765; J3010; J7030